=== PATIENT | male | born 1965 | race Two or more races ===

== ENCOUNTER 2025-05-18 06:59 | Day surgery (SDC) | payer MEDICARE, OTHER ==
[~2025-05-18] VITALS: Ht 162.6 cm; Wt 79.4 kg
[~2025-05-18 06:59] MED LIST: ASPI81CH59 PO; ATEN-60 PO; ATOR10TA PO; EZET10TA22 PO; GABA-1250 PO; METF-370 PO; PERCOT PO
[2025-05-18] MEDS: ceFAZolin 2 GM/D5W50ml 50 ML IV ONE (08:56)
[2025-05-18] MEDS: LIDOCAINE 1% HCL (LOCAL ANESTH.) INJ 20ML MDV ONE (09:38)
[2025-05-18] MEDS: BUPIVACAINE 0.25% INJ 50ML VIAL ONE (09:39)
[2025-05-18] MEDS ORDERED: fentaNYL CITRATE 100 MCG/2 ML VL ONE (09:41)
[2025-05-18] MEDS ORDERED: PROPOFOL 10 MG/ML 20 ML IV ONE (09:41)
[2025-05-18 09:42] VITALS: PULSE 83; RESP 12; TEMP 97; O2SAT 97
[2025-05-18] MEDS: ACETAMINOPHEN IV 1000 MG/100ML (10MG/ML) IV PRN (09:55)
[2025-05-18] MEDS ORDERED: HYDROmorphone HCL 2 MG/ML VL/or syr ONE (09:59)
[2025-05-18] MEDS ORDERED: METOCLOPRAMIDE HCL 5MG/ml INJ 2ml VIAL IV PRN (10:00)
[2025-05-18] MEDS ORDERED: HYDROmorphone HCL 2 MG/ML VL/or syr IV PRN (10:00)
[2025-05-18] MEDS ORDERED: ONDANSETRON HCL 4 MG/2 ML VIAL IV PRN (10:00)
[2025-05-18] MEDS: ACETAMINOPHEN IV 100 ML IV ONE (10:11)
[2025-05-18] MEDS ORDERED: ONDANSETRON HCL 4 MG/2 ML VIAL ONE (10:14)
[2025-05-18] MEDS: HYDROmorphone HCL 2 MG/ML VL/or syr IV PRN (10:19)
[2025-05-18] MEDS: MEPERIDINE HCL (25 MG/ML) 1ML VIAL IV PRN (11:10)
[2025-05-18 11:32] VITALS: BP 105/69; PULSE 71; RESP 13; O2SAT 99
--- NOTE | 2025-05-19 12:45 | DVHOP2 ---
Operative Report - 2 Report Details Date: 05/18/25 Preop Diagnosis: Left carpal and cubital tunnel Postop Diagnosis: Left carpal and cubital tunnel Surgeon: Franklin Gill MD Anesthesiologist: Cassandra FALK Anesthesia: General Consent: The patient was informed of the risks and benefits of the procedure. These include but are not limited to complications of anesthesia, postoperative infection, incomplete relief of symptoms, recurrence of symptoms, damage to blood vessels, nerves and tendons, deep venous thrombosis, pulmonary embolism and possible need for repeat surgery in the future. Estimated Blood Loss: 5 cc Name of Procedure Performed Left carpal and cubital tunnel release Procedure Details Procedure Details: Indications: he has had EMG/NCV testing that is consistent with his clinical exam. he wishes to proceed with surgical intervention. Risks/benefits/options and alternatives were discussed in depth with patient. Risks include but not exclusive to: bleeding, infection, nerve injury, chronic pain, stiffness, motor or sensory paralysis, loss of limb, deep venous thrombosis, and . PROCEDURE IN DETAIL: Patient was seen in the preoperative area. Consent was signed and then he was taken to the operating room. With the patient under adequate anesthesia, the upper extremity was prepped and draped in a sterile manner. The arm was exsanguinated. The tourniquet was elevated at 250 mm/Hg. Construction lines were made on the palm to identify the ring ray. 3 cm vertical incision made in mid-palm. Blunt dissection exposed the antebrachial fascia. Hemostasis was obtained with bipolar cautery. A distal-based window in the antebrachial fascia was then fashioned. Care was taken to protect the underlying contents. Careful dissection carried down to The transverse carpal ligament was easily visualized. the transverse carpal ligament was then divided. We then made a 5 cm incision over cubital tunnel. Blunt dissection to ulnar nerve. At that point ulnar nerve protected and cubital release done releasing the ulnar nerve. Hemostasis maintained with bipolar cautery. Patients nerve stayed within the groove so did not need transposition. The wound was then closed with 3-0 nylon for carpal and 2-0 vicryl/chad for cubital tunnel. sterile dressing was applied. The tourniquet was deflated. The patient was awakened from anesthesia and returned to the Recovery Room in satisfactory condition, having tolerated the procedure well. Condition Good Disposition Home FRANKLIN GILL MD 4, 2025 12:45
--- NOTE | 2025-05-20 07:45 | ECG ---
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
== END 2025-05-18 11:42 | disposition home or self-care (01) ==
LOC: SUR 06:59
PROVIDERS: ATTEND Orthopaedic Surgery Adult Reconstructive Orthopaedic Surgery
DX: G56.02 Carpal tunnel syndrome, left upper limb (principal); G56.22 Lesion of ulnar nerve, left upper limb; E66.01 Morbid (severe) obesity due to excess calories; I10 Essential (primary) hypertension; I25.10 Atherosclerotic heart disease of native coronary artery without angina pectoris; G89.29 Other chronic pain; E78.5 Hyperlipidemia, unspecified; E11.9 Type 2 diabetes mellitus without complications; Z79.899 Other long term (current) drug therapy; Z68.30 Body mass index [BMI] 30.0-30.9, adult; Z87.891 Personal history of nicotine dependence; Z79.82 Long term (current) use of aspirin; Z79.84 Long term (current) use of oral hypoglycemic drugs
CPT/HCPCS: 64718; 64721; 82962; 93005; J0690; J1171; J2003; J2175; J2405; J2704; J3010; J0131; J3490